=== PATIENT | female | born 1965 | race Caucasian/White ===

== ENCOUNTER → 2024-11-01 | Outpatient (CLI) | payer OTHER ==
--- NOTE | 2024-11-01 12:46 | MR ---
EXAMINATION TYPE: MR abdomen wo/w con DATE OF EXAM: 11/01/2024 7:07 AM COMPARISON: Pet/CT. 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 Post contrast imaging was performed. Post IV contrast subtraction images were also submitted for review. IV Contrast: 4.5 mL Gadobutrol FINDINGS: LOWER CHEST: No gross irregularity. ABDOMEN Liver: No evidence for hepatic steatosis or cirrhosis. Gallbladder and Bile ducts: No evidence for ductal dilation, or biliary stricture or evidence of chol edocholithiasis. The gallbladder is within normal limits. Pancreas: No ductal dilation. No evidence for solid mass. Spleen: Normal for size. Adrenal glands: Unremarkable. Kidneys: Right kidney is asymmetrically decreased in size compared to left. The right kidney is somew hat atrophic and has abnormal position in the renal fossae. No evidence for obstructive uropathy. In the posterior right superior kidney in the area of FDG activity which is in close proximity to the li marti demonstrates no evidence of mass. There is some cortical thinning in this region and multiple are as within the kidney. No suspicious solid renal masses. Stomach and Bowel: No evidence for bowel wall thickening or evidence for obstruction. Retroperitoneum/Peritoneum: No evidence of pneumoperitoneum or free fluid. Vasculature: No aortic aneurysm. Musculoskeletal: The osseous structures appear intact. Lymph Nodes: No gross evidence for lymphadenopathy. Abdominal wall: Unremarkable. IMPRESSION: * Area on pet/CT is thought to represent kidney tissue no suspicious masses identified. There is sca ttered areas of cortical thinning suggestive of increase in the right kidney. The right kidney is asy mmetrically decreased in size. No suspicious renal masses. * No acute abdominal process. [facility], , 11/01/2024 12:43 PM
== END | disposition home or self-care (01) ==
LOC: RADMRIMAIN 06:03
PROVIDERS: ATTEND Internal Medicine Hematology & Oncology
DX: D41.10 Neoplasm of uncertain behavior of unspecified renal pelvis (principal)
CPT/HCPCS: 74183; A9585